=== PATIENT | female | born 1975 | race Caucasian/White ===

== ENCOUNTER → 2016-05-19 | Outpatient (CLI) | payer MEDICARE, MEDICAID ==
[~2016-05-19] MED LIST: ALBUTEROL-200 PUFFS/ IH; ASPIRIN 81MG TA81 MG PO; ATENOLOL50 MG PO; BENZONATATE100 MG PO; CEFDINIR300 MG PO; FLEXERIL10 MG PO; HYDROCHLOROTHIA25 M1 PO; HYDROCODONE1 TABLET PO; LEVAQUIN250 M1 PO; LORTAB 5/500 501 TAB PO; MEDROL 4MG. DOSE4 MG PO; NAPROSYN 500MG500 MG PO; NORCO 325 MG-51 TAB PO; NORTRIPTYLINE H50 M1 PO; OMEPRAZOLE20 MG PO; PHENERGAN 25MG.25 M1 PO; PHENTERMINE37.5 MG PO; PREDNISONE 5MG.5 MG PO; REQUIP 1 MG TABL1 MG PO; REQUIP0.25 M1 PO; SERTRALINE 100100 MG PO; SIMVASTATIN20 MG PO; TAMBOCOR50 MG PO; TESSALON PERLE100 M1 PO; TRAZODONE 50MG50 MG PO; VICODIN 5/500 T1 TAB PO; ZITHROMAX Z PA250 MG PO; ZOFRAN ODT4 MG PO
[2016-05-19 07:46] LABS: HEMOGLOBIN 12.9 g/dL (12.2-16.2); LYMPH # 1.4 K/mm3 (0.7-4.5); LYMPH % 22.4 % (10-50.0)
[2016-05-19 09:28] LABS: BUN 11 mg/dL (7-18)
[2016-05-19 09:29] LABS: GFR (ESTIMATED) 111 ML/MIN (59-)
[2016-05-21 08:39] LABS: Folate (Folic Acid) 7.9 ng/mL (>3.0); Vitamin D, 25-Hydroxy 11.2 ng/mL (30.0-100.0)
== END ==
LOC: LAB 07:25
PROVIDERS: Physician Assistant
DX: I10 Essential (primary) hypertension (principal); E66.01 Morbid (severe) obesity due to excess calories; R12 Heartburn; E53.8 Deficiency of other specified B group vitamins; E78.4 Other hyperlipidemia; Z87.42 Personal history of other diseases of the female genital tract; Z72.0 Tobacco use; Z79.899 Other long term (current) drug therapy